=== PATIENT | female | born 1950 | race Caucasian/White ===

== ENCOUNTER 2019-02-09 10:32 | Outpatient (CLI) | payer MEDICARE ==
--- NOTE | 2019-02-09 14:05 | MRI ---
MRI LUMBAR SPINE WITHOUT CONTRAST: HISTORY: Pain. COMPARISON: None. FINDINGS: The aortic contour is nonaneurysmal. No retroperitoneal adenopathy. The paraspinal musculature is s ymmetric. No marrow infiltrative process. There are modic type II endplate changes at L1-L2 and posteriorly at L3-L4, The conus medullaris terminates at the inferior L1 vertebral body. Levels are as follows: L1-L2: Advanced degenerative disk space height loss. Circumferential disk osteophyte complex. Ther e is retrolisthesis of 2 mm. The retrolisthesis does cause some narrowing of the spinal canal, to ap proximately 9 mm. There are mild hypertrophic facet degenerative changes. There is mild to moderate bilateral neural foraminal narrowing. L2-L3: Circumferential disk osteophyte complex. Severe right and moderate left sided hypertrophic f acet changes. There is ligamentum flavum hypertrophy. The spinal canal measures 7 mm. There is mod erate to severe right and moderate left sided neural foraminal narrowing with abutment of both exitin g and traversing nerve roots. L3-L4: There is a broad-based posterior disk osteophyte complex. Moderate facet arthropathy. Moder ate ligamentum flavum hypertrophy. The spinal canal measures approximately 7 mm. Moderate bilateral neural foraminal narrowing. The spinal canal measures approximately 6 mm. L4-L5: There is 1 mm of anterolisthesis due to degenerative facet changes. There is circumferential disk bulge. There is moderate right and mild left sided neural foraminal narrowing with abutment of the right exiting and traversing nerve root. The spinal canal measures approximately 8 mm. L5-S1: Low grade circumferential disk bulge. Moderate to severe left and moderate right sided facet arthrosis. There is moderate to severe left-sided neural foraminal narrowing with abutment of the l eft exiting and traversing nerve root. Mild right-sided neural foraminal narrowing. IMPRESSION: Multilevel spondylosis, as described, with neural foraminal and spinal canal narrowing. POS: [facility]
== END 2019-02-09 10:33 | disposition home or self-care (01) ==
LOC: TBSIIMAG 10:32
PROVIDERS: ATTEND Family Medicine
DX: M47.26 Other spondylosis with radiculopathy, lumbar region (principal); M48.061 Spinal stenosis, lumbar region without neurogenic claudication; M48.07 Spinal stenosis, lumbosacral region
CPT/HCPCS: 72148